=== PATIENT | female | born 1960 | race Caucasian/White ===

== ENCOUNTER 2017-04-02 16:44 | Outpatient (CLI) | payer BC ==
[2009-09-12 06:07] VITALS: BMI 23.7
== END 2017-04-02 23:59 | disposition home or self-care (01) ==
LOC: D.MAMMO 16:44
DX: Z12.31 Encounter for screening mammogram for malignant neoplasm of breast (principal)

== ENCOUNTER 2018-10-26 13:00 | Outpatient (CLI) | payer BC ==
[2009-09-12 06:07] VITALS: BMI 23.7
== END 2018-10-26 13:30 | disposition home or self-care (01) ==
LOC: D.MAMMO 13:00
PROVIDERS: ATTEND Obstetrics & Gynecology Gynecology
DX: Z12.31 Encounter for screening mammogram for malignant neoplasm of breast (principal)

== ENCOUNTER 2020-02-20 17:30 | Outpatient (CLI) | payer BC ==
[2009-09-12 06:07] VITALS: BMI 23.7
== END 2020-02-20 23:59 | disposition home or self-care (01) ==
LOC: D.MAMMO 17:30
PROVIDERS: ATTEND Obstetrics & Gynecology Gynecology
DX: Z12.31 Encounter for screening mammogram for malignant neoplasm of breast (principal)